=== PATIENT | female | born 1965 | race Caucasian/White ===

== ENCOUNTER 2018-05-02 08:16 | Emergency (ER) | payer BC ==
[2018-05-02] MEDS: KETOROLAC 30 MG INJ IM (09:50)
== END 2018-05-02 11:33 | disposition home or self-care (01) ==
LOC: FTE 08:16
DX: S99.922A Unspecified injury of left foot, initial encounter (principal); X58.XXXA Exposure to other specified factors, initial encounter; Y92.9 Unspecified place or not applicable
CPT/HCPCS: 73630; 73630-LT; 81025; 99283-25